=== PATIENT | male | born 1995 | race Caucasian/White ===

== ENCOUNTER 2016-08-04 16:18 | Emergency (ER) | payer MEDICAID, OTHER ==
[~2016-08-04] VITALS: Ht 175.3 cm; Wt 90.7 kg
[2016-08-04 18:05] VITALS: BP 142/74
== END 2016-08-04 18:13 | disposition home or self-care (01) ==
LOC: M ED 17:14
DX: S60.221A Contusion of right hand, initial encounter (principal); V03.10XA Pedestrian on foot injured in collision with car, pick-up truck or van in traffic accident, initial encounter; Y92.410 Unspecified street and highway as the place of occurrence of the external cause; Y93.89 Activity, other specified; Y99.8 Other external cause status

== ENCOUNTER → 2016-08-31 | Outpatient (CLI) | payer SELFPAY | LOC: M OUTALCOH 09:17 | PROVIDERS: ATTEND Psychiatry & Neurology Psychiatry | DX: Z03.89 Encounter for observation for other suspected diseases and conditions ruled out (principal) ==

== ENCOUNTER 2016-10-14 15:00 | Outpatient (RCR) | payer SELFPAY | END 2016-10-17 | LOC: M OUTALCOH 15:00 | PROVIDERS: ATTEND Psychiatry & Neurology Psychiatry | DX: F12.20 Cannabis dependence, uncomplicated (principal) ==

== ENCOUNTER 2016-11-04 15:00 | Outpatient (RCR) | payer SELFPAY | END 2016-11-17 | LOC: M OUTALCOH 15:00 | PROVIDERS: ATTEND Psychiatry & Neurology Psychiatry | DX: F12.20 Cannabis dependence, uncomplicated (principal) ==

== ENCOUNTER 2018-08-31 13:35 | Inpatient (IN) | payer MEDICAID, OTHER, SELFPAY ==
[~2018-08-31] VITALS: Ht 175.3 cm; Wt 105.2 kg
[2018-08-31 14:16] LABS: HEMATOCRIT 48.1 % (42.0-52.0); HEMOGLOBIN 16.3 g/dl (13.5-17.5); MEAN CORPUSCULAR HEMOGLOBIN 32.8 pg (27.0-33.0); MEAN CORPUSCULAR HGB CONC 33.9 g/dl (32.0-36.5); MEAN CORPUSCULAR VOLUME 96.8 fl (80.0-96.0); PLATELET COUNT, AUTOMATED 246 10^3/uL (150-450); RED BLOOD COUNT 4.97 10^6/uL (4.30-6.10); WHITE BLOOD COUNT 10.1 10^3/uL (4.0-10.0)
[2018-08-31 14:38] LABS: AMPHETAMINES LEVEL URINE NEGATIVE (NEGATIVE); BARBITURATES URINE NEGATIVE (NEGATIVE); BENZODIAZEPINES URINE NEGATIVE (NEGATIVE); CANNABINOIDS URINE POSITIVE (NEGATIVE); COCAINE METABOLITE URINE NEGATIVE (NEGATIVE); METHADONE URINE NEGATIVE (NEGATIVE); OPIATES URINE NEGATIVE (NEGATIVE); PHENCYCLIDINE URINE NEGATIVE (NEGATIVE)
[2018-08-31 14:53] LABS: ACETAMINOPHEN LEVEL < 2.0 UG/ML (10.0-30.0); ALBUMIN 4.2 GM/DL (3.2-5.2); ALT/SGPT 35 U/L (12-78); BILIRUBIN,DIRECT 0.2 MG/DL (0.0-0.2); BILIRUBIN,TOTAL 0.6 MG/DL (0.2-1.0); BLOOD UREA NITROGEN 7 MG/DL (7-18); CALCIUM LEVEL 8.7 MG/DL (8.5-10.1); CARBON DIOXIDE LEVEL 29 MEQ/L (21-32); CHLORIDE LEVEL 107 MEQ/L (98-107); CREATININE FOR GFR 0.92 MG/DL (0.70-1.30); ETHYL ALCOHOL (ETHANOL) < 0.003 % (0.000-0.010); GLOMERULAR FILTRATION RATE > 60.0 (>60); GLUCOSE, FASTING 100 MG/DL (70-100); POTASSIUM SERUM 4.2 MEQ/L (3.5-5.1); SALICYLATE LEVEL 2.8 MG/DL (5.0-30.0); SODIUM LEVEL 140 MEQ/L (136-145); TOTAL PROTEIN 7.8 GM/DL (6.4-8.2)
[2018-08-31] MEDS ORDERED: traZODone 50 MG TAB PO PRN (17:30)
[2018-08-31] MEDS ORDERED: MOM 30ML SUSPENSION UDC PO PRN (17:30)
[2018-08-31] MEDS ORDERED: ACETAMINOPHEN TAB 650MG DOSE (2X325MG) PO PRN (17:30)
[2018-08-31] MEDS ORDERED: MAALOX 30 ML SUSP *UDC PO PRN (17:30)
[2018-08-31 22:46] VITALS: BP 138/82
[2018-09-01 07:03] VITALS: BP 132/80
--- NOTE | 2018-09-01 10:39 | HPEPDOC ---
General Date of Admission Aug 31, 2018 at 17:25 Date of Service: Sep 01, 2018 Attending Physician: JOJO PÉREZ MD Chief Complaint The patient is a 22-year-old male admitted with a reason for visit of Unspecified Depresive Disorder. History of Present Illness Patient is a 22-year-old male, admitted on account of acute depressive episode. Patient made suicidal ideation statements to girlfriend who called the police. He said he has nothing to live for. On admit. Hematology panel was remarkable for white blood count of 10.1. Toxicology report was abnormal for positive THC l evels. On assessment, he denies any medical complaints, denies chest pain denies SOB, denies weakness or any physical issues Home Medications No Active Prescriptions or Reported Meds Allergies Coded Allergies: No Known Allergies (Unverified , 08/31/18) Past Medical History Medical History Obesity Nicotine dependence Surgical History Denies Family History Father : Prostrate cancer Social History Smokes half a pack of cigarettes a day, denies alcohol abuse, but admits to THC use A-FIB/CHADSVASC A-FIB History Current/History of A-Fib/PAF?: No Current PO Anticoag Therapy: No Review of Systems Other systems A 10 point pertinent review of systems was completed, negative except as stated in the history of presenting illness. Physical Examination Other physical findings GENERAL: NAD SKIN : Warm, dry intact HEENT: Atraumatic, normocephalic, PERRL, moist mucous membrane CARDIOVASCULAR: Regular rate and rhythm, S1S2, no JVD, no edema, distal pulses + and palpable RESP: CTAB, no accessory muscle use noted ABDOMEN: BS+ non distended non tender MS: no joint deformities NEURO: Alert and oriented x 3, CN2-12 grossly intact PSYCH: no anxiety or agitation, appropriate mood and affect. Vital Signs Vital Signs Date Time Temp Pulse Resp B/P (MAP) Pulse Ox O2 Delivery O2 Flow Rate FiO2 09/01/18 07:03 97.1 79 14 132/80 (97) 08/31/18 21:57 98 08/31/18 15:10 Room Air Laboratory Data Labs 24H Laboratory Tests 2 08/31/18 13:56: Nucleated Red Blood Cells % (auto) 0.0, Anion Gap 4L, Glomerular Filtration Rate > 60.0, Calcium Level 8.7, Aspartate Amino Transf (AST/SGOT) 20, Alanine Aminotransferase (ALT/SGPT) 35, Alkaline Phosphatase 85, Total Bilirubin 0.6, Direct Bilirubin 0.2, Total Protein 7.8, Albumin 4.2, Albumin/Globulin Ratio 1.17, Thyroid Stimulating Hormone (TSH) 1.490, Salicylates Level 2.8L, Acetaminophen Level < 2.0L, Ethyl Alcohol Level < 0.003 08/31/18 14:00: Urine Amphetamines Screen NEGATIVE, Urine Benzodiazepines Screen NEGATIVE, Urine Opiates Screen NEGATIVE, Urine Methadone Screen NEGATIVE, Urine Barbiturates Screen NEGATIVE, Urine Phencyclidine Screen NEGATIVE, Urine Cocaine Metabolite Screen NEGATIVE, Urine Cannabinoids Screen POSITIVEH CBC/BMP Laboratory Tests 08/31/18 13:56 Red Blood Count 4.97, Mean Corpuscular Volume 96.8 H, Mean Corpuscular Hemoglobin 32.8, Mean Corpuscular Hemoglobin Concent 33.9, Red Cell Distribution Width 12.8 Assessment/Plan Suicidal ideation Depression Polysubstance abuse PLAN At this time patient has no acute medical problems or underlying comorbidities requiring active follow-up. Acute problems are being managed by primary team. Medical team will sign off, please re-consult as needed. Plan / VTE VTE Prophylaxis Ordered?: No VTE Exclusion Mechanical Proph: Low Risk for VTE KIERSTEN DEY Sep 01, 2018 10:39
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
[2018-09-01 18:00] VITALS: BP 111/58
[2018-09-02 06:43] VITALS: BP 88/50
--- NOTE | 2018-09-02 09:29 | MHIPNPDOC ---
[facility] Progress Note Progress Note DATE OF SERVICE: 09/02/18 HISTORY: 22-year-old with numerous stressors, legal, family ,counseling. Court dates, employment counseling VITAL SIGNS: See below. NEW TEST RESULTS: . CURRENT MEDICATIONS: See below. MENTAL STATUS EXAMINATION: Patient is a 22-year old male, who is. denying suicidal, homicidal ideation. Speech: Is intact. Language skills are. No disturbance. Thought processes including:. No gross disturbance. Thought content:. Denies hallucinations, delusions, obsessions, compulsions, phobias. Abstract reasoning, and computation:, Able to abstract. Description of associations:. No loose associations. Description of abnormal or psychotic thoughts:. No gross overt are described psychotic thoughts. Judgment:, Fair. Insight:, Limited. Orientation: Intact 3. Recent and remote memory:. Intact. Attention span and concentration:. No abnormalities noted. Language: As above. Fund of knowledge:. Full. Mood: Euthymic. Affect:, Congruent. DIAGNOSES: 1.. Adjustment disorder with mixed emotions. 2. Numerous stressors. . ASSESSMENT: Outpatient treatment will most likely be suggested after further history and information gathered MANAGEMENT PLAN: As above. TIME SPENT:, 35 minutes. Vital Signs Vital Signs Date Time Temp Pulse Resp B/P (MAP) Pulse Ox O2 Delivery O2 Flow Rate FiO2 09/02/18 06:43 97.5 50 16 88/50 (63) 08/31/18 21:57 98 08/31/18 15:10 Room Air Current Medications Current Medications Acetaminophen (Tylenol Tab) 650 mg Q6HP PRN PO HEADACHE or DISCOMFORT; Start 08/31/18 at 17:30 Al Hydrox/Mg Hydrox/Simethicone (Mylanta) 30 ml Q4HP PRN PO HEARTBURN/INDIGESTION; Start 08/31/18 at 17:30 Home Med (Med Rec Complete!) ASDIRECTED XX ; Start 08/31/18 at 18:00; Stop 08/31/18 at 18:01; Status DC Magnesium Hydroxide (Milk Of Magnesia) 30 ml DAILYPRN PRN PO CONSTIPATION; Start 08/31/18 at 17:30 Trazodone HCl (Desyrel) 50 mg QHSP PRN PO INSOMNIA; Start 08/31/18 at 17:30 Allergies Coded Allergies: No Known Allergies (Unverified , 08/31/18) BOB GRAJEDA MD Sep 02, 2018 09:29
[2018-09-02 13:43] VITALS: BP 127/58
[2018-09-02 18:00] VITALS: BP 126/73
[2018-09-03 06:12] VITALS: BP 113/63
--- NOTE | 2018-09-03 09:35 | MHIPNPDOC ---
[facility] Progress Note Progress Note void Vital Signs Vital Signs Date Time Temp Pulse Resp B/P (MAP) Pulse Ox O2 Delivery O2 Flow Rate FiO2 09/03/18 06:12 98.4 69 20 113/63 (80) 09/02/18 13:43 98 08/31/18 15:10 Room Air Current Medications Current Medications Acetaminophen (Tylenol Tab) 650 mg Q6HP PRN PO HEADACHE or DISCOMFORT; Start 08/31/18 at 17:30 Al Hydrox/Mg Hydrox/Simethicone (Mylanta) 30 ml Q4HP PRN PO HEARTBURN/INDIGESTION; Start 08/31/18 at 17:30 Home Med (Med Rec Complete!) ASDIRECTED XX ; Start 08/31/18 at 18:00; Stop 08/31/18 at 18:01; Status DC Magnesium Hydroxide (Milk Of Magnesia) 30 ml DAILYPRN PRN PO CONSTIPATION; Start 08/31/18 at 17:30 Trazodone HCl (Desyrel) 50 mg QHSP PRN PO INSOMNIA; Start 08/31/18 at 17:30 Allergies Coded Allergies: No Known Allergies (Unverified , 08/31/18) HARSHAL FERGUSON DO Sep 03, 2018 9:29 am
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
== END 2018-09-03 11:40 | disposition home or self-care (01) | DRG 754 ==
LOC: M ED 13:35 → M ED INP 17:25 → M PSY 21:52
PROVIDERS: ADMIT Psychiatry & Neurology Psychiatry; ATTEND Psychiatry & Neurology Psychiatry
DX: F43.21 Adjustment disorder with depressed mood (principal); R45.851 Suicidal ideations; F12.90 Cannabis use, unspecified, uncomplicated; Z65.3 Problems related to other legal circumstances; E66.9 Obesity, unspecified; F17.210 Nicotine dependence, cigarettes, uncomplicated

== ENCOUNTER → 2019-09-12 | Outpatient (CLI) | payer MEDICAID, OTHER | LOC: M PLALAB 10:05 | PROVIDERS: ATTEND Psychiatry & Neurology Addiction Medicine | DX: F10.99 Alcohol use, unspecified with unspecified alcohol-induced disorder (principal) ==

== ENCOUNTER → 2019-09-12 | Outpatient (CLI) | payer MEDICAID | LOC: M OUTALCOH 08:22 | PROVIDERS: ATTEND Psychiatry & Neurology Addiction Medicine | DX: Z13.9 Encounter for screening, unspecified (principal); F16.20 Hallucinogen dependence, uncomplicated; F14.20 Cocaine dependence, uncomplicated; F15.20 Other stimulant dependence, uncomplicated; F17.200 Nicotine dependence, unspecified, uncomplicated ==

== ENCOUNTER → 2019-09-17 | Outpatient (REF) | payer OTHER ==
[2019-09-17 23:49] LABS: CHLAMYDIA DNA AMPLIFICATION NEGATIVE (NEGATIVE); GC DNA AMPLIFICATION POSITIVE (NEGATIVE)
== END ==
LOC: M LAB REF 21:46
PROVIDERS: ATTEND Physician Assistant Medical
DX: Z20.2 Contact with and (suspected) exposure to infections with a predominantly sexual mode of transmission (principal)

== ENCOUNTER → 2020-01-21 | Outpatient (CLI) | payer OTHER | LOC: M OUTALCOH 12:57 | PROVIDERS: ATTEND Psychiatry & Neurology Addiction Medicine | DX: Z13.39 Encounter for screening examination for other mental health and behavioral disorders (principal); F16.20 Hallucinogen dependence, uncomplicated ==

== ENCOUNTER → 2020-02-17 | Outpatient (RCR) | payer OTHER | LOC: M OUTALCOH 01-30 16:00 | PROVIDERS: ATTEND Psychiatry & Neurology Addiction Medicine | DX: F16.20 Hallucinogen dependence, uncomplicated (principal); F15.20 Other stimulant dependence, uncomplicated; Z72.0 Tobacco use ==

== ENCOUNTER → 2020-03-19 | Outpatient (RCR) | payer MEDICAID, OTHER | LOC: M OUTALCOH 02-19 14:05 | PROVIDERS: ATTEND Psychiatry & Neurology Addiction Medicine | DX: F16.20 Hallucinogen dependence, uncomplicated (principal); F15.20 Other stimulant dependence, uncomplicated; Z72.0 Tobacco use ==

== ENCOUNTER 2020-04-13 14:00 | Outpatient (RCR) | payer OTHER | END 2020-04-19 | LOC: M OUTALCOH 14:00 | PROVIDERS: ATTEND Psychiatry & Neurology Addiction Medicine | DX: F16.20 Hallucinogen dependence, uncomplicated (principal); F15.20 Other stimulant dependence, uncomplicated; Z72.0 Tobacco use ==

== ENCOUNTER 2020-05-12 14:55 | Outpatient (RCR) | payer OTHER | END 2020-05-17 | LOC: M OUTALCOH 14:55 | PROVIDERS: ATTEND Psychiatry & Neurology Addiction Medicine | DX: F16.20 Hallucinogen dependence, uncomplicated (principal); F15.20 Other stimulant dependence, uncomplicated; Z72.0 Tobacco use ==

== ENCOUNTER 2020-06-16 09:00 | Outpatient (RCR) | payer OTHER | END 2020-06-17 | LOC: M OUTALCOH 09:00 | PROVIDERS: ATTEND Psychiatry & Neurology Addiction Medicine | DX: F16.20 Hallucinogen dependence, uncomplicated (principal); F15.20 Other stimulant dependence, uncomplicated; Z72.0 Tobacco use ==

== ENCOUNTER → 2020-07-17 | Outpatient (RCR) | payer OTHER | LOC: M OUTALCOH 06-30 15:30 | PROVIDERS: ATTEND Psychiatry & Neurology Psychiatry | DX: F16.20 Hallucinogen dependence, uncomplicated (principal); F15.20 Other stimulant dependence, uncomplicated; Z72.0 Tobacco use ==

== ENCOUNTER 2020-08-14 08:45 | Outpatient (RCR) | payer OTHER ==
[2020-08-18] MEDS ORDERED: DOXY100C37 PO (15:28)
== END 2020-08-17 ==
LOC: M OUTALCOH 08:45
PROVIDERS: ATTEND Psychiatry & Neurology Psychiatry
DX: F16.20 Hallucinogen dependence, uncomplicated (principal); F15.20 Other stimulant dependence, uncomplicated; Z72.0 Tobacco use

== ENCOUNTER 2020-08-18 11:43 | Emergency (ER) | payer OTHER ==
[~2020-08-18] VITALS: Ht 175.3 cm; Wt 99.3 kg
[2020-08-18 11:51] VITALS: BP 135/84
--- NOTE | 2020-08-18 14:42 | REP ---
INDICATION: swelling, redness, iv drug use ro abscess arm COMPARISON: None TECHNIQUE: Real time devries scale ultrasound examination using linear high-frequency transducer FINDINGS: Ultrasound examination of the right upper extremity at the elbow in the region of maximal swelling and erythema demonstrates subcutaneous edema and a 2.4 x 1.2 x 0.7 cm complex fluid collection likely small abscess versus hematoma. IMPRESSION: 1. Edema and small collection suggesting abscess versus small hematoma. <Electronically signed by Craig Elmore > 08/18/20 [id number]
--- NOTE | 2020-08-18 14:43 | REP ---
INDICATION: redness, swelling ro clot COMPARISON: None. TECHNIQUE: Carpenter scale and color Doppler evaluation using linear high frequency transducer. FINDINGS: Ultrasound examination of the right upper extremity veins including visualized jugular, subclavian, axillary, brachial, basilic and cephalic veins demonstrate normal flow patterns without evidence for occlusion. Contralateral subclavian vein is patent. IMPRESSION: No evidence for deep venous thrombosis. <Electronically signed by Craig Elmore > 08/18/20 [id number]
[2020-08-18 14:49] LABS: BASO # 0.1 10^3/uL (0.0-0.2); BASO % 0.4 % (0.0-1.0); EOS # 0.1 10^3/uL (0.0-0.5); EOS % 0.6 % (0.0-3.0); HEMATOCRIT 45.5 % (42.0-52.0); HEMOGLOBIN 15.3 g/dl (13.5-17.5); LYMPH # 2.9 10^3/uL (1.5-5.0); LYMPH % 21.5 % (24.0-44.0); MEAN CORPUSCULAR HEMOGLOBIN 31.1 pg (27.0-33.0); MEAN CORPUSCULAR HGB CONC 33.6 g/dl (32.0-36.5); MEAN CORPUSCULAR VOLUME 92.5 fl (80.0-96.0); MONO # 0.7 10^3/uL (0.0-0.8); MONO % 5.3 % (2.0-8.0); NEUTROPHILS # 9.6 10^3/uL (1.5-8.5); NEUTROPHILS % 71.8 % (36.0-66.0); PLATELET COUNT, AUTOMATED 313 10^3/uL (150-450); RED BLOOD COUNT 4.92 10^6/uL (4.30-6.10); WHITE BLOOD COUNT 13.4 10^3/uL (4.0-10.0)
[2020-08-18 15:04] LABS: BLOOD UREA NITROGEN 4 MG/DL (7-18); C REACTIVE PROTEIN QUANTITATIV 8.39 MG/DL (0.00-0.30); CALCIUM LEVEL 9.3 MG/DL (8.5-10.1); CARBON DIOXIDE LEVEL 27 MEQ/L (21-32); CHLORIDE LEVEL 104 MEQ/L (98-107); CREATININE FOR GFR 0.65 MG/DL (0.70-1.30); GLOMERULAR FILTRATION RATE > 60.0 (>60); GLUCOSE, FASTING 104 MG/DL (70-100); POTASSIUM SERUM 3.8 MEQ/L (3.5-5.1); SODIUM LEVEL 137 MEQ/L (136-145)
[2020-08-18 15:26] LABS: ERYTHROCYTE SEDIMENTATION RATE 39 mm/hr (0-15)
[2020-08-18] MEDS ORDERED: DOXY100C37 PO (15:28)
== END 2020-08-18 15:35 | disposition left against medical advice (07) ==
LOC: M ED 11:43
DX: L02.413 Cutaneous abscess of right upper limb (principal); Z53.9 Procedure and treatment not carried out, unspecified reason; F17.200 Nicotine dependence, unspecified, uncomplicated

== ENCOUNTER 2020-09-11 08:45 | Outpatient (RCR) | payer OTHER ==
[~2020-09-11 08:45] MED LIST: DOXY1CAP62 PO
== END 2020-09-16 ==
LOC: M OUTALCOH 08:45
PROVIDERS: ATTEND Psychiatry & Neurology Psychiatry
DX: F16.20 Hallucinogen dependence, uncomplicated (principal); F15.20 Other stimulant dependence, uncomplicated; Z72.0 Tobacco use

== ENCOUNTER → 2021-09-14 | Outpatient (REF) | payer OTHER ==
[~2021-09-14] MED LIST changes: +DOXY-443 PO; -DOXY1CAP62 PO
[2021-09-14 17:57] LABS: GC DNA AMPLIFICATION POSITIVE (NEGATIVE)
== END ==
LOC: M LAB REF 15:39
PROVIDERS: ATTEND Surgery
DX: A64 Unspecified sexually transmitted disease (principal)